=== PATIENT | male | born 1955 | race Caucasian/White ===

== ENCOUNTER → 2017-07-01 | Day surgery (SDC) | payer OTHER ==
[2017-06-30 12:46] LABS: BASOPHILS # (AUTO) 0.1 (0.0-0.1); BASOPHILS % 1.5 % (0.0-1.0); EOSINOPHILS # (AUTO) 0.8 (0.0-0.4); EOSINOPHILS % 11.6 % (0.0-6.0); HEMATOCRIT 33.1 % (38.2-49.6); HEMOGLOBIN 11.4 g/dL (14.0-18.0); LYMPHOCYTES # (AUTO) 1.2 (1.0-3.2); LYMPHOCYTES % 17.1 % (18.0-39.1); MEAN CORPUSCULAR HEMOGLOBIN 31.3 pg (28-32); MEAN CORPUSCULAR HGB CONC 34.4 g/dL (31-35); MEAN CORPUSCULAR VOLUME 90.9 fL (81-99); MONOCYTES # (AUTO) 0.8 (0.2-0.8); MONOCYTES % 11.6 % (4.4-11.3); NEUTROPHILS # (AUTO) 3.9 (2.1-6.9); NEUTROPHILS % 57.9 % (38.7-80.0); PLATELET COUNT 159 x10e3/uL (140-360); RED BLOOD COUNT 3.64 x10e6/uL (4.3-5.7); RED CELL DISTRIBUTION WIDTH 15.1 % (11.7-14.4)
[2017-06-30 13:00] LABS: INR 1.18; PROTHROMBIN TIME 14.1 seconds (11.9-14.5)
[2017-06-30 13:10] LABS: ALANINE AMINOTRANSFERASE 16 IU/L (0-55); ALBUMIN 3.5 g/dL (3.5-5.0); ALBUMIN/GLOBULIN RATIO 0.9 (0.8-2.0); ALKALINE PHOSPHATASE 58 IU/L (40-150); ANION GAP 12.1 mmol/L (8-16); BLOOD UREA NITROGEN 27 mg/dL (7-26); BUN/CREATININE RATIO 33 (6-25); CALCIUM 9.7 mg/dL (8.4-10.2); CARBON DIOXIDE 27 mmol/L (22-29); CHLORIDE 108 mmol/L (98-107); CHOL/HDL RATIO 2.8 (3.9-4.7); CHOLESTEROL 142 MD/DL (0-199); CREATININE, SERUM 0.83 mg/dL (0.72-1.25); EST GLOMERULAR FILTRATION RATE > 60 ML/MIN (60-); GLUCOSE 99 mg/dL (74-118); HDL CHOLESTEROL 50 MG/DL (40-60); LDL CHOLESTEROL 84 MG/DL (60-130); POTASSIUM 5.1 mmol/L (3.5-5.1); SODIUM 142 mmol/L (136-145); TRIGLYCERIDES 41 MG/DL (0-149)
[~2017-07-01] VITALS: Ht 185.4 cm; Wt 113.4 kg
[~2017-07-01] MED LIST: ACETAMINOPHEN325 M1 PO; COREG3.125 MG PO; FENTANYL CITRATE/PF 100MCG/2 ML INJ ONE; FUROSEMIDE40 MG PO; HEPARIN SOD (PORCINE) 1000 UNIT/ML 30ML ONE; HEPARIN SOD/SOD CHLORIDE 2,000 ML ONE; IOPAMIDOL 370 MG/ML 200 ML INFUS..BTL INJ ONE; JANUVIA100 MG PO; LIDOCAINE HCL 2% LOCAL 20 ML VIAL ONE; MIDAZOLAM HCL 2 MG/2 ML VIAL ONE; NITROGLYCERIN/D5W 200 MCG/ML 250 ML ONE; POTASSIUM CHLO20 ME1 PO; SODIUM CHLORIDE 0.9% 1000ML 1,000 ML ONE; VERAPAMIL HCL 2.5 MG/ML 2 ML VIAL ONE; WARFARIN SODIUM2 MG PO
--- OUTSIDE RECORDS SUMMARY | 2017-07-01 11:33 | XMS REPORT | Clinical Summary ---
Author Author [facility] Address Unknown Phone Unavailable Care Team Providers Care Vocal Music Instructor Name Role Phone PCP Unavailable Allergies Active Allergy Reactions Severity Noted Date Comments Vancomycin Analogues Rash Medium 03/23/2016 Diffuse erythematous rash 17 days into therapy Current Medications Prescription Sig. Disp. Refills Start End Date Status Date metFORMIN (GLUCOPHAGE) Take 1,000 mg by mouth 2 Active 1000 MG tablet (two) times daily with breakfast and dinner. carvedilol (COREG) 6.25 Take 6.25 mg by mouth 2 Active MG tablet (two) times daily with breakfast and dinner. aspirin 81 MG chewable Take 1 tablet (81 mg 90 tablet 3 04/01/19 Active tablet total) by mouth daily. 17 atorvastatin (LIPITOR) 80 Take 1 tablet (80 mg 90 tablet 3 04/01/19 Active MG tablet total) by mouth nightly. 17 warfarin (COUMADIN) 1 MG Take 6.5 tablets (6.5 mg 0 04/01/19 Active tablet total) by mouth daily. 17 ceFAZolin (ANCEF) IVPB 2 Inject 50 mLs (2 g total) 0 04/01/19 Active g in dextrose 5% (D5W) 50 intravenously every 8 17 mL (eight) hours. insulin glargine 100 Inject 12 Units 5 Syringe 5 04/01/19 Active unit/mL (3 mL) InPn subcutaneously nightly. 17 pen needle, diabetic 31 1 each by Miscellaneous 30 each 5 04/01/19 Active gauge x 5/16" Ndle route daily. 17 Active Problems Problem Noted Date Type 2 diabetes mellitus without complication, without long-term current 10/2016 use of insulin (HCC) CAD (coronary artery disease) 03/25/2016 Great toe amputation status, right (HCC) 03/25/2016 Bandemia 03/25/2016 Gangrenous toe (HCC) 03/24/2016 Social History Tobacco Use Types Packs/Day Years Used Date Never Smoker Smokeless Tobacco: Never Used Alcohol Use Drinks/Week oz/Week Comments No Sex Assigned at Date Recorded Not on file Last Filed Vital Signs Not on file Plan of Treatment Not on file Implants Implanted Type Area Biofuels Research Scientist Device Expiration Model / Identifier Date Serial / Lot Tissue Nucell Lg W/Matrix Nc-1002 - Tissue Right: [employer] 2016 NC-1002 / [id number] Graft/Subs Foot [id number] Implanted: Qty: 1 on 03/29/2016 by maria de jesus 301 / Bebeto Walsh DPM Explanted: Epifix Injectable 160mg Ei-5200 - Tissue Right: [employer] 2020 EI-5200 / [id number] Graft/Subs Foot INC [id number] Implanted: Qty: 1 on 04/22/2016 by maria de jesus [id number] / Bebeto Walsh DPM Explanted: Results Not on fileafter 06/30/2016
--- OUTSIDE RECORDS SUMMARY | 2017-07-01 11:33 | XMS REPORT ---
Author Author [facility] Address Unknown Phone Unavailable Care Team Providers Care Flight Manager Name Role Phone SAIMA ELIZONDO Unavailable Unavailable RASHAD VILLAGOMEZ Unavailable Unavailable Problems This patient has no known problems. Allergies, Adverse Reactions, Alerts This patient has no known allergies or adverse reactions. Medications This patient has no known medications. Results Test Description Test Time Test Comments Text Results Atomic Results Result Comments AFB CULTURE + SMEAR 2016-05-11 12:13:00 CULTURE (BEAKER) (test zpqn=9553) No acid-fast bacilli isolated in 42 days AFB SMEAR (BEAKER) (test geck=905) No acid fast bacilli seen TISSUE [id number] 17:22:00* Test Item Value Reference Range Comments LAB AP CPT CODE (BEAKER) (test krsp=3631) [address] FUNGUS CULTURE + [id number] 21:46:00* Test Item Value Reference Range Comments CULTURE (BEAKER) (test wxwu=8216) No fungus isolated in 28 days FUNGUS SMEAR (BEAKER) (test kxol=4395) No fungi seen POCT-GLUCOSE [id number] 13:23:00* Test Item Value Reference Range Comments POC-GLUCOSE METER (BEAKER) (test dqlp=5818) 134 mg/dL 70-110 TESTED AT [address] [address] PROTHROMBIN [id number] 10:42:00* Test Item Value Reference Range Comments PROTIME (BEAKER) (test jzoz=436) 24.4 seconds 11.7-14.7 INR (BEAKER) (test bsdh=533) 2.2 <=5.9 RECOMMENDED COUMADIN/WARFARIN INR THERAPY RANGESSTANDARD DOSE: 2.0 - 3.0 Includes: PROPHYLAXIS for venous thrombosis, systemic embolization; TREATMENT for venous thrombosis and/or pulmonary embolus.HIGH RISK: Target INR is 2.5-3.5 for patients with mechanical heart valves.[id number] 10:42:00* Test Item Value Reference Range Comments HEMOGLOBIN (BEAKER) (test exsu=598) 11.0 GM/DL 13.0-16.8 POCT-GLUCOSE [id number] 10:30:00* Test Item Value Reference Range Comments POC-GLUCOSE METER (BEAKER) (test shqh=7053) 151 mg/dL 70-110 TESTED AT [place] [id number] [facility] [place] [address] ANAEROBIC [id number] 02:23:00* Test Item Value Reference Range Comments CULTURE (BEAKER) (test zlgu=2604) No anaerobes isolated POCT-GLUCOSE [id number] 12:56:00* Test Item Value Reference Range Comments POC-GLUCOSE METER (BEAKER) (test fwxv=9118) 140 mg/dL 70-110 TESTED AT [address] [address] POCT-GLUCOSE [id number] 07:50:00* Test Item Value Reference Range Comments POC-GLUCOSE METER (BEAKER) (test fala=4725) 184 mg/dL 70-110 TESTED AT [address] [address] SURGICALLY OBTAINED CULTURE + GRAM [id number] 07:32:00* Test Item Value Reference Range Comments CULTURE (BEAKER) (test pqqa=8171) No growth GRAM STAIN RESULT (BEAKER) (test fmby=2253) <1+ WBCs GRAM STAIN RESULT (BEAKER) (test poxc=52749) No organisms seen CBC W/PLT COUNT & AUTO [id number] 07:15:00* Test Item Value Reference Range Comments WHITE BLOOD CELL COUNT (BEAKER) (test mhsi=372) 11.6 K/ L 4.0-10.0 RED BLOOD CELL COUNT (BEAKER) (test bqwn=832) 2.60 M/ L 4.20-5.80 HEMOGLOBIN (BEAKER) (test krwt=809) 8.1 GM/DL 13.0-16.8 HEMATOCRIT (BEAKER) (test pfsf=624) 23.9 % 40.0-50.0 MEAN CORPUSCULAR VOLUME (BEAKER) (test swca=118) 92.2 fL 82.0-98.0 MEAN CORPUSCULAR HEMOGLOBIN (BEAKER) (test calc=157) 31.1 pg 27.0-33.0 MEAN CORPUSCULAR HEMOGLOBIN CONC (BEAKER) (test wxfl=591) 33.7 GM/DL 32.0- 36.0 RED CELL DISTRIBUTION WIDTH (BEAKER) (test bqpb=899) 16.6 % 10.3-14.2 PLATELET COUNT (BEAKER) (test oqgo=254) 330 K/CU MM 150-430 MEAN PLATELET VOLUME (BEAKER) (test iacn=801) 6.5 fL 6.5-10.5 NUCLEATED RED BLOOD CELLS (BEAKER) (test qqbm=813) 0 /100 WBC 0-0 NEUTROPHILS RELATIVE PERCENT (BEAKER) (test gyzg=005) 72 % LYMPHOCYTES RELATIVE PERCENT (BEAKER) (test pwmr=169) 15 % MONOCYTES RELATIVE PERCENT (BEAKER) (test fnay=304) 8 % EOSINOPHILS RELATIVE PERCENT (BEAKER) (test fwnl=199) 5 % BASOPHILS RELATIVE PERCENT (BEAKER) (test mqyw=697) 0 % NEUTROPHILS ABSOLUTE COUNT (BEAKER) (test jupf=533) 8.36 K/ L 1.80-8.00 LYMPHOCYTES ABSOLUTE COUNT (BEAKER) (test wllm=227) 1.69 K/ L 1.48-4.50 MONOCYTES ABSOLUTE COUNT (BEAKER) (test irtl=381) 0.91 K/ L 0.00-1.30 EOSINOPHILS ABSOLUTE COUNT (BEAKER) (test ekpe=834) 0.59 K/ L 0.00-0.50 BASOPHILS ABSOLUTE COUNT (BEAKER) (test qvlq=919) 0.05 K/ L 0.00-0.20 0.00BASI METABOLIC [id number] 05:36:00* Test Item Value Reference Range Comments SODIUM (BEAKER) (test snhq=034) 138 meq/L 136-145 POTASSIUM (BEAKER) (test hsda=056) 3.5 meq/L 3.5-5.1 CHLORIDE (BEAKER) (test yfzl=275) 105 meq/L 98-107 CO2 (BEAKER) (test shzb=234) 26 meq/L 22-29 BLOOD UREA NITROGEN (BEAKER) (test jrol=852) 8 mg/dL 7-21 CREATININE (BEAKER) (test xnok=723) 0.67 mg/dL 0.57-1.25 GLUCOSE RANDOM (BEAKER) (test voqx=967) 156 mg/dL 70-105 CALCIUM (BEAKER) (test zbdg=428) 8.4 mg/dL 8.4-10.2 EGFR (BEAKER) (test nibo=9560) 121 mL/min/1.73 sq m ESTIMATED GFR IS NOT ACCURATE CREATININE CLEARANCE IN PREDICTING GLOMERULAR FILTRATION RATE. ESTIMATED GFR IS NOT APPLICABLE FOR DIALYSIS PATIENTS. [id number] 05:21:00* Test Item Value Reference Range Comments PARTIAL THROMBOPLASTIN TIME (BEAKER) (test spck=295) 54.5 seconds 22.5-36.0 PROTHROMBIN TIME/[id number] 05:20:00* Test Item Value Reference Range Comments PROTIME (BEAKER) (test ihmy=727) 21.6 seconds 11.7-14.7 INR (BEAKER) (test zfgs=631) 1.9 <=5.9 RECOMMENDED COUMADIN/WARFARIN INR THERAPY RANGESSTANDARD DOSE: 2.0 - 3.0 Includes: PROPHYLAXIS for venous thrombosis, systemic embolization; TREATMENT for venous thrombosis and/or pulmonary embolus.HIGH RISK: Target INR is 2.5-3.5 for patients with mechanical heart valves.POCT-GLUCOSE [id number] 20:46:00 * Test Item Value Reference Range Comments POC-GLUCOSE METER (BEAKER) (test ylht=0323) 202 mg/dL 70-110 TESTED AT [place] [address] [id number] 18:06:00* Test Item Value Reference Range Comments PARTIAL THROMBOPLASTIN TIME (BEAKER) (test mbaw=418) 67.5 seconds 22.5-36.0 POCT-GLUCOSE [id number] 17:26:00* Test Item Value Reference Range Comments POC-GLUCOSE METER (BEAKER) (test luyc=7560) 128 mg/dL 70-110 TESTED AT [address] [address] [id number] 16:07:00* Test Item Value Reference Range Comments PARTIAL THROMBOPLASTIN TIME (BEAKER) (test jjrm=187) 123.7 seconds 22.5-36.0 POCT-GLUCOSE [id number] 12:27:00* Test Item Value Reference Range Comments POC-GLUCOSE METER (BEAKER) (test qqir=6110) 176 mg/dL 70-110 TESTED AT [place] [id number] 08:42:00* Test Item Value Reference Range Comments PARTIAL THROMBOPLASTIN TIME (BEAKER) (test iqjv=560) 63.8 seconds 22.5-36.0 CBC W/PLT COUNT & AUTO [id number] 08:38:00* Test Item Value Reference Range Comments WHITE BLOOD CELL COUNT (BEAKER) (test rdyo=196) 14.7 K/ L 4.0-10.0 RED BLOOD CELL COUNT (BEAKER) (test uraa=597) 2.67 M/ L 4.20-5.80 HEMOGLOBIN (BEAKER) (test qgva=174) 8.0 GM/DL 13.0-16.8 HEMATOCRIT (BEAKER) (test uzna=467) 24.5 % 40.0-50.0 MEAN CORPUSCULAR VOLUME (BEAKER) (test hzjj=364) 91.8 fL 82.0-98.0 MEAN CORPUSCULAR HEMOGLOBIN (BEAKER) (test fzhf=385) 29.9 pg 27.0-33.0 MEAN CORPUSCULAR HEMOGLOBIN CONC (BEAKER) (test ueju=203) 32.6 GM/DL 32.0- 36.0 RED CELL DISTRIBUTION WIDTH (BEAKER) (test fbvz=787) 15.9 % 10.3-14.2 PLATELET COUNT (BEAKER) (test lglz=963) 360 K/CU MM 150-430 MEAN PLATELET VOLUME (BEAKER) (test hxad=739) 6.6 fL 6.5-10.5 NUCLEATED RED BLOOD CELLS (BEAKER) (test eicb=816) 0 /100 WBC 0-0 NEUTROPHILS RELATIVE PERCENT (BEAKER) (test qwwk=480) 77 % LYMPHOCYTES RELATIVE PERCENT (BEAKER) (test qqgn=070) 11 % MONOCYTES RELATIVE PERCENT (BEAKER) (test umgr=734) 7 % EOSINOPHILS RELATIVE PERCENT (BEAKER) (test kccy=377) 5 % BASOPHILS RELATIVE PERCENT (BEAKER) (test vpbv=327) 0 % NEUTROPHILS ABSOLUTE COUNT (BEAKER) (test awqx=307) 11.30 K/ L 1.80-8.00 LYMPHOCYTES ABSOLUTE COUNT (BEAKER) (test pjcx=406) 1.58 K/ L 1.48-4.50 MONOCYTES ABSOLUTE COUNT (BEAKER) (test dkdp=493) 1.09 K/ L 0.00-1.30 EOSINOPHILS ABSOLUTE COUNT (BEAKER) (test iwsm=609) 0.72 K/ L 0.00-0.50 BASOPHILS ABSOLUTE COUNT (BEAKER) (test covp=490) 0.03 K/ L 0.00-0.20 0.00POCT-GLUCOSE [id number] 08:23:00* Test Item Value Reference Range Comments POC-GLUCOSE METER (BEAKER) (test mfia=4729) 144 mg/dL 70-110 TESTED AT [facility] [address] [facility] [place] [address] BASIC METABOLIC [id number] 07:11:00* Test Item Value Reference Range Comments SODIUM (BEAKER) (test npyn=128) 137 meq/L 136-145 POTASSIUM (BEAKER) (test irdn=871) 3.6 meq/L 3.5-5.1 CHLORIDE (BEAKER) (test vpws=917) 103 meq/L 98-107 CO2 (BEAKER) (test nioc=451) 26 meq/L 22-29 BLOOD UREA NITROGEN (BEAKER) (test ekei=880) 8 mg/dL 7-21 CREATININE (BEAKER) (test tljd=336) 0.66 mg/dL 0.57-1.25 GLUCOSE RANDOM (BEAKER) (test epqq=377) 144 mg/dL 70-105 CALCIUM (BEAKER) (test mcmp=679) 8.5 mg/dL 8.4-10.2 EGFR (BEAKER) (test qaao=4178) 123 mL/min/1.73 sq m ESTIMATED GFR IS NOT ACCURATE CREATININE CLEARANCE IN PREDICTING GLOMERULAR FILTRATION RATE. ESTIMATED GFR IS NOT APPLICABLE FOR DIALYSIS PATIENTS. [id number] 07:05:00* Test Item Value Reference Range Comments PARTIAL THROMBOPLASTIN TIME (BEAKER) (test vnxk=451) 125.8 seconds 22.5-36.0 Draw at 6 amPROTHROMBIN TIME/[id number] 07:01:00* Test Item Value Reference Range Comments PROTIME (BEAKER) (test kjec=751) 19.1 seconds 11.7-14.7 INR (BEAKER) (test qslw=418) 1.6 <=5.9 RECOMMENDED COUMADIN/WARFARIN INR THERAPY RANGESSTANDARD DOSE: 2.0 - 3.0 Includes: PROPHYLAXIS for venous thrombosis, systemic embolization; TREATMENT for venous thrombosis and/or pulmonary embolus.HIGH RISK: Target INR is 2.5-3.5 for patients with mechanical heart valves.Draw at 6 [id number] 22:52:00* Test Item Value Reference Range Comments PARTIAL THROMBOPLASTIN TIME (BEAKER) (test qbwu=842) 44.6 seconds 22.5-36.0 POCT-GLUCOSE [id number] 21:16:00* Test Item Value Reference Range Comments POC-GLUCOSE METER (BEAKER) (test tcel=1473) 172 mg/dL 70-110 TESTED AT [facility] [address] [facility] [place] [address] POCT-GLUCOSE [id number] 17:44:00* Test Item Value Reference Range Comments POC-GLUCOSE METER (BEAKER) (test syvb=9152) 145 mg/dL 70-110 TESTED AT [place] [id number] [facility] [place] [address] SPIN/CONCENTRATION [id number] 17:36:00* Test Item Value Reference Range Comments CONCENTRATION CHARGED (BEAKER) (test txwb=5850) Done
[2017-07-01 11:50] VITALS: BP 137/71
--- NOTE | 2017-07-01 15:20 | Operative Report ---
DATE OF PROCEDURE: July 01, 2017 INDICATIONS: Coronary artery disease. Abnormal stress test. PROCEDURES PERFORMED: 1. Left heart catheterization, selective coronary angiography. 2. Deployment of right wrist transradial band. COMPLICATIONS: None. RECOMMENDATIONS: Medical therapy including biventricular AICD placement. Access was obtained in the right radial artery. A 5-Singaporean sheath was placed. Diagnostic coronary angiogram revealed mild coronary artery disease in the left coronary system, and 50% mid left anterior descending artery stenosis with mild myocardial bridging was noted. Circumflex was dominant with mild disease. Right coronary artery was nondominant. No critical stenosis or occlusions were noted. A right wrist TR band applied. Patient discharged home same day with recommendations as above. Job#: [id number] EV
== END | disposition home or self-care (01) ==
LOC: CATH LAB 11:31
PROVIDERS: ATTEND Internal Medicine Interventional Cardiology
DX: R94.39 Abnormal result of other cardiovascular function study (principal); I50.9 Heart failure, unspecified; Z01.812 Encounter for preprocedural laboratory examination; Z79.01 Long term (current) use of anticoagulants
CPT/HCPCS: 36415; 80053; 80061; 85025; 85610; 93458; C1769; C1887; J1644; J2001; J2250; J7030; Q9967; 36140; 77002